=== PATIENT | male | born 1990 | race African-American/Black ===

== ENCOUNTER 2019-06-07 21:07 | Emergency (ER) | payer SELFPAY ==
[~2019-06-07] VITALS: Ht 180.3 cm; Wt 104.3 kg
[2019-06-07 21:55] LABS: BASO % 0 % (0-3); EOS % 0 % (0-3); HEMATOCRIT 48.6 % (39.0-53.0); HEMOGLOBIN 15.9 g/dL (13.0-17.5); LYMPH # 2.8 x10^3/uL (1.0-4.8); LYMPH % 20 % (24-48); MEAN CORPUSCULAR HEMOGLOBIN 28 pg (25-35); MEAN CORPUSCULAR HGB CONC 33 g/dL (31-37); MEAN CORPUSCULAR VOLUME 86 fL (79-100); MONO # 0.9 x10^3/uL (0.0-1.1); MONO % 6 % (0-9); NEUT # 10.3 x10^3/uL (1.8-7.7); NEUT % 73 % (31-73); PLATELET COUNT 284 x10^3/uL (140-400); RED BLOOD COUNT 5.67 x10^6/uL (4.30-5.70); RED CELL DISTRIBUTION WIDTH 12.7 % (11.5-14.5)
[2019-06-07 22:04] LABS: CALCIUM 9.9 mg/dL (8.5-10.1); GFR 109.3; POTASSIUM 4.2 mmol/L (3.5-5.1)
--- NOTE | 2019-06-07 22:04 | PHYS DOC ---
Past Medical History Past Medical History: No Pertinent History Past Surgical History: No Surgical History Alcohol Use: None Drug Use: None Adult General Chief Complaint Chief Complaint: ABDOMINAL PAIN [facility] HPI 28-year-old male presents to the emergency department with complaints of intermittent episodes of chest wall pain. Patient states is been ongoing 3 days worse with movements. He denies any nausea, vomiting, diarrhea, shortness breath, abdominal pain. States the pain is worse with movements of his arms. This is not reproducible on exam. Patient denies any injury. He has no past medical history nor that of allergies to medications. Patient denies any tobacco or alcohol or drug use. All other ROS negative unless documented in HPI Review of Systems Review of Systems See Above Current Medications Current Medications Current Medications Medications (Trade) Dose Ordered Sig/Danya Start Time Stop Time Status Last Admin Dose Admin Ketorolac Tromethamine (Toradol 30mg Vial) 30 mg 1X ONCE 06/07/19 22:15 06/07/19 22:16 DC 06/07/19 22:04 30 MG Allergies Allergies Allergies Coded Allergies Type Severity Reaction Last Updated Verified No Known Drug Allergies 06/07/19 No Physical Exam Physical Exam See Above Constitutional: Well developed, well nourished, no acute distress, non-toxic appearance. [] HENT: Normocephalic, atraumatic, bilateral external ears normal, oropharynx moist, no oral exudates, nose normal. [] Eyes: PERRLA, EOMI, conjunctiva normal, no discharge. [] Cardiovascular:Heart rate regular rhythm, no murmur [] Lungs & Thorax: Bilateral breath sounds clear to auscultation [] Abdomen: Bowel sounds normal, soft, no tenderness, no masses, no pulsatile masses. [] Skin: Warm, dry, no erythema, no rash. [] Back: No tenderness, no CVA tenderness. [] Extremities: No tenderness, no edema. [] Neurologic: Alert and oriented X 3, no focal deficits noted. [] Psychologic: Affect normal, judgement normal, mood normal. [] Current Patient Data Vital Signs Vital Signs Date Time Temp Pulse Resp B/P (MAP) Pulse Ox O2 Delivery O2 Flow Rate FiO2 06/07/19 21:15 98.3 89 19 161/76 (104) 96 Room Air 98.3 Lab Values Laboratory Tests Test 06/07/19 21:30 White Blood Count 14.0 x10^3/uL (4.0-11.0) H Red Blood Count 5.67 x10^6/uL (4.30-5.70) Hemoglobin 15.9 g/dL (13.0-17.5) Hematocrit 48.6 % (39.0-53.0) Mean Corpuscular Volume 86 fL (79-100) Mean Corpuscular Hemoglobin 28 pg (25-35) Mean Corpuscular Hemoglobin Concent 33 g/dL (31-37) Red Cell Distribution Width 12.7 % (11.5-14.5) Platelet Count 284 x10^3/uL (140-400) Neutrophils (%) (Auto) 73 % (31-73) Lymphocytes (%) (Auto) 20 % (24-48) L Monocytes (%) (Auto) 6 % (0-9) Eosinophils (%) (Auto) 0 % (0-3) Basophils (%) (Auto) 0 % (0-3) Neutrophils # (Auto) 10.3 x10^3/uL (1.8-7.7) H Lymphocytes # (Auto) 2.8 x10^3/uL (1.0-4.8) Monocytes # (Auto) 0.9 x10^3/uL (0.0-1.1) Eosinophils # (Auto) 0.0 x10^3/uL (0.0-0.7) Basophils # (Auto) 0.0 x10^3/uL (0.0-0.2) Sodium Level 133 mmol/L (136-145) L Potassium Level 4.2 mmol/L (3.5-5.1) Chloride Level 94 mmol/L (98-107) L Carbon Dioxide Level 25 mmol/L (21-32) Anion Gap 14 (6-14) Blood Urea Nitrogen 10 mg/dL (8-26) Creatinine 1.0 mg/dL (0.7-1.3) Estimated GFR (Cockcroft-Gault) 109.3 BUN/Creatinine Ratio 10 (6-20) Glucose Level 383 mg/dL (70-99) H Calcium Level 9.9 mg/dL (8.5-10.1) Magnesium Level 2.0 mg/dL (1.8-2.4) Total Bilirubin 0.9 mg/dL (0.2-1.0) Aspartate Amino Transferase (AST) 16 U/L (15-37) Alanine Aminotransferase (ALT) 31 U/L (16-63) Alkaline Phosphatase 84 U/L (46-116) Troponin I Quantitative < 0.017 ng/mL (0.000-0.055) Total Protein 8.5 g/dL (6.4-8.2) H Albumin 4.5 g/dL (3.4-5.0) Albumin/Globulin Ratio 1.1 (1.0-1.7) Laboratory Tests 06/07/19 21:30 Laboratory Tests 06/07/19 21:30 EKG EKG EKG reviewed, normal sinus rhythm, normal axis, heart rate 87, no evidence of ST elevation LA appreciated, interpretation time 2200[] Radiology/Procedures Radiology/Procedures [facility] [address] [place] [address] IMAGING REPORT Signed PATIENT: DEBORAH SOLOMON ACCOUNT: [id number] : 1990 LOCATION: ER AGE: 28 SEX: M EXAM STATUS: REG ER ORD. PHYSICIAN: JARRETT RAMÍREZ MD REASON: chest pain PROCEDURE: PORTABLE CHEST 1V EXAM: Chest, single view. HISTORY: Chest pain. COMPARISON: None. FINDINGS: A frontal view of the chest is obtained. There is no infiltrate, pleural effusion or pneumothorax. The heart is normal in size. IMPRESSION: No acute pulmonary finding. Electronically signed by: Radha Philip MD (06/07/2019 10:12 PM) [facility] DICTATED and SIGNED BY: RADHA PHILIP MD DATE: 06/07/192211 [] Course & Med Decision Making Course & Med Decision Making Pertinent Labs and Imaging studies reviewed. (See chart for details) []28-year-old male presents to the emergency department with complaints of intermittent episodes of chest wall pain. Patient states is been ongoing 3 days worse with movements. He denies any nausea, vomiting, diarrhea, shortness breath, abdominal pain. States the pain is worse with movements of his arms. This is not reproducible on exam. Patient denies any injury. He has no past medical history nor that of allergies to medications. Patient denies any tobacco or alcohol or drug use. Labs reviewed - WBC 14K CXR negative for acute process - no effusion/consolidation appreciated Toradol given with improvement of pain Noted evidence hyperglycemia - new diagnosis of diabetes, discussed medications vs dietary changes Chest wall pain Discussed return precautions Dragon Disclaimer Dragon Disclaimer This electronic medical record was generated, in whole or in part, using a voice recognition dictation system. Departure Departure Impression: Primary Impression: Chest wall pain Additional Impression: Hyperglycemia Disposition: HOME, SELF-CARE Condition: IMPROVED Referrals: NO PCP (PCP) Patient Instructions: 2400 Calorie Diet for Diabetes Meal Planning, Chest Wall Pain, [id number], Diabetes Meal Planning Guide, Hyperglycemia, [id number] Additional Instructions: Recommend follow up with PCP 3 - 5 days Return to the ER with worsening symptoms, intractable pain, fever, altered mental status Tylenol/Motrin as needed for pain - may use Motrin 800mg every 8 hours Problem Qualifiers JARRETT RAMÍREZ MD Jun 07, 2019 22:04
[2019-06-07 22:10] LABS: ALBUMIN 4.5 g/dL (3.4-5.0); ALBUMIN/GLOBULIN RATIO 1.1 (1.0-1.7); TOTAL BILIRUBIN 0.9 mg/dL (0.2-1.0); TOTAL PROTEIN 8.5 g/dL (6.4-8.2)
[2019-06-07] MEDS ORDERED: KETOROLAC 30 MG/ML VIAL. IVP ONE (22:15)
--- NOTE | 2019-06-07 22:15 | RAD ---
EXAM: Chest, single view. HISTORY: Chest pain. COMPARISON: None. FINDINGS: A frontal view of the chest is obtained. There is no infiltrate, pleural effusion or pneumothorax. The heart is normal in size. IMPRESSION: No acute pulmonary finding. Electronically signed by: Radha Philip MD (06/07/2019 10:12 PM) [facility]
[2019-06-07 23:27] VITALS: BP 113/56
--- NOTE | 2019-06-08 06:25 | EKG ---
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
== END 2019-06-07 23:55 | disposition home or self-care (01) ==
LOC: ER 21:07
DX: R07.89 Other chest pain (principal); E11.65 Type 2 diabetes mellitus with hyperglycemia
CPT/HCPCS: 36415; 71045; 80053; 83735; 84484; 85025; 93005; 96374; 99285; J1885

== ENCOUNTER 2020-01-01 19:05 | Emergency (ER) | payer SELFPAY ==
[~2020-01-01] VITALS: Ht 177.8 cm; Wt 119.1 kg
--- NOTE | 2020-01-01 19:24 | PHYS DOC ---
Past Medical History Past Medical History: No Pertinent History Past Surgical History: No Surgical History Smoking Status: Never Smoker Alcohol Use: None Drug Use: None General Adult EDM: Chief Complaint: HEADACHE HPI: HPI: Patient is a 29 year old male who presents for moderate diffuse headache. Patient states that he has been seeing spots on the right side for 2 weeks and on the left side for 24 hours. Presenting blood pressure was 184/106. Patient has not been diagnosed with hypertension in the past. Furthermore patient has been somewhat dizzy this morning. Patient has been taking ibuprofen for headache. Patient had pressure in his chest back in May. Another finding in triage was a blood sugar of 280. Patient has not been diagnosed nor treated for hypertension or diabetes in the past. Patient is in mild distress on arrival with no focal deficits or lateralizing signs Review of Systems: Review of Systems: Constitutional: Denies fever or chills. [] Eyes: has intermittent change in visual acuity. [] HENT: Denies nasal congestion or sore throat. [] Respiratory: Denies cough or shortness of breath. [] Cardiovascular: Denies recent chest pain or edema. [] GI: Denies abdominal pain, nausea, vomiting, bloody stools or diarrhea. [] : Denies dysuria. [] Musculoskeletal: Denies back pain or joint pain. [] Integument: Denies rash. [] Neurologic: has headache, no focal weakness or sensory changes. [] Endocrine: has polyuria or polydipsia. [] Lymphatic: Denies swollen glands. [] Psychiatric: Denies depression or anxiety. [] Heart Score: Risk Factors: Risk Factors: DM, Current or recent (<one month) smoker, HTN, HLP, family history of CAD, obesity. Risk Scores: Score 0 - 3: 2.5% MACE over next 6 weeks - Discharge Home Score 4 - 6: 20.3% MACE over next 6 weeks - Admit for Clinical Observation Score 7 - 10: 72.7% MACE over next 6 weeks - Early Invasive Strategies Allergies: Allergies: Allergies Coded Allergies Type Severity Reaction Last Updated Verified No Known Drug Allergies 06/07/19 No Physical Exam: PE: Constitutional: Well developed, well nourished, mild distress, non-toxic appearance. [] HENT: Normocephalic, atraumatic, bilateral external ears normal, oropharynx moist, no oral exudates, nose normal. [] Eyes: PERRL, EOMI, conjunctiva normal, no discharge. [] Neck: Normal range of motion, no tenderness, supple, no stridor. [] Cardiovascular:Heart rate regular rhythm, no murmur [] Lungs & Thorax: Bilateral breath sounds clear to auscultation [] Abdomen: Bowel sounds normal, soft, no tenderness, no masses, no pulsatile masses. [] Skin: Warm, dry, no erythema, no rash. [] Back: No tenderness. [] Extremities: No tenderness, no cyanosis, no clubbing, ROM intact, no edema. [] Neurologic: Alert and oriented X 3, normal motor function, normal sensory function, no focal deficits noted. [] Psychologic: Affect normal, judgement normal, mood normal. [] Current Patient Data: Labs: Laboratory Tests Test 01/01/20 19:21 Glucose (Fingerstick) 280 mg/dL (70-99) H Vital Signs: Laboratory Tests Test 01/01/20 19:21 01/01/20 19:32 Glucose (Fingerstick) 280 mg/dL White Blood Count 9.6 x10^3/uL Red Blood Count 5.19 x10^6/uL Hemoglobin 15.1 g/dL Hematocrit 44.5 % Mean Corpuscular Volume 86 fL Mean Corpuscular Hemoglobin 29 pg Mean Corpuscular Hemoglobin Concent 34 g/dL Red Cell Distribution Width 12.8 % Platelet Count 236 x10^3/uL Neutrophils (%) (Auto) 69 % Lymphocytes (%) (Auto) 19 % Monocytes (%) (Auto) 12 % Eosinophils (%) (Auto) 0 % Basophils (%) (Auto) 1 % Neutrophils # (Auto) 6.6 x10^3/uL Lymphocytes # (Auto) 1.8 x10^3/uL Monocytes # (Auto) 1.1 x10^3/uL Eosinophils # (Auto) 0.0 x10^3/uL Basophils # (Auto) 0.0 x10^3/uL Sodium Level 135 mmol/L Potassium Level 3.8 mmol/L Chloride Level 99 mmol/L Carbon Dioxide Level 29 mmol/L Anion Gap 7 Blood Urea Nitrogen 8 mg/dL Creatinine 1.2 mg/dL Estimated GFR (Cockcroft-Gault) 87.9 BUN/Creatinine Ratio 7 Glucose Level 305 mg/dL Calcium Level 8.8 mg/dL Total Bilirubin 0.7 mg/dL Aspartate Amino Transf (AST/SGOT) 22 U/L Alanine Aminotransferase (ALT/SGPT) 41 U/L Alkaline Phosphatase 69 U/L Troponin I Quantitative < 0.017 ng/mL Total Protein 7.9 g/dL Albumin 3.9 g/dL Albumin/Globulin Ratio 1.0 Current Medications Medications (Trade) Dose Ordered Sig/Danya Route PRN Reason Start Time Stop Time Status Last Admin Dose Admin Hydralazine HCl (Apresoline Inj) 10 mg 1X ONCE IVP 01/01/20 19:45 01/01/20 19:46 DC Sodium Chloride 1,000 ml @ 999 mls/hr 1X ONCE IV 01/01/20 19:45 01/01/20 20:45 01/01/20 19:55 EKG: EKG: EKG read at 1923: Normal sinus rhythm, rate 95, inverted T wave lead III but essentially unremarkable EKG, not STEMI [] Radiology/Procedures: Radiology/Procedures: [place] [phone] IMAGING REPORT Signed PATIENT: DEBORAH SOLOMON ACCOUNT: [id number] : 1990 LOCATION: ER AGE: 29 SEX: M EXAM STATUS: PRE ER ORD. PHYSICIAN: NANCY POOL DO REASON: short of air PROCEDURE: CHEST AP ONLY EXAM: Chest, single view. HISTORY: Shortness of air. COMPARISON: 06/07/2019 FINDINGS: A frontal view of the chest obtained. There is no infiltrate, pleural effusion or pneumothorax. The heart is normal in size. IMPRESSION: No acute pulmonary finding. Electronically signed by: Radha Bull MD (01/01/2020 7:48 PM) [facility] DICTATED and SIGNED BY: RADHA BULL MD DATE: 01/01/201947 [] Impression: [address] [address] IMAGING REPORT Signed PATIENT: DEBORAH SOLOMON ACCOUNT: [id number] : 1990 LOCATION: ER AGE: 29 SEX: M EXAM STATUS: REG ER ORD. PHYSICIAN: NANCY POOL DO REASON: headache PROCEDURE: CT HEAD WO CONTRAST CT HEAD WO CONTRAST History: Reason: headache / Spl. Instructions: / History: Comparison: None. Technique: Noncontrast CT imaging was performed of the head. Exposure: One or more of the following individualized dose reduction techniques were utilized for this examination: 1. Automated exposure control 2. Adjustment of the mA and/or kV according to patient size 3. Use of iterative reconstruction technique. Findings: No intracranial hemorrhage. No mass effect. No hydrocephalus. Extra-axial spaces are unremarkable. Imaged orbits are unremarkable. Imaged paranasal sinuses and mastoid air cells are clear. No acute calvarial fracture. Impression: 1. No acute intracranial abnormality. Electronically signed by: Lion Rivera DO (01/01/2020 8:02 PM) [facility] DICTATED and SIGNED BY: LION RIVERA DO DATE: 01/01/202001 Course & Med Decision Making: Course & Med Decision Making Pertinent Labs and Imaging studies reviewed. (See chart for details) [] Dragon Disclaimer: Dragon Disclaimer: This electronic medical record was generated, in whole or in part, using a voice recognition dictation system. 2019 stable, feeling moderately improved at this time. Systolic blood pressure improved to 165 systolic so hydralazine was not ultimately given. 2239 stable, patient reassessed at this time. He no longer has a headache or vision changes. Blood sugar was elevated but stable at 280. We had a lengthy discussion about controlling blood pressure and getting his diabetes under control as well. We stressed the need for him to see a family doctor he may need to be on diabetic oral medication. I will start patient on hydrochlorothiazide. His blood pressure improved to 136/82 at this time. Furthermore it was stressed that he needs to see an eye doctor to have his retinas checked. There could be damage from his blood pressure or diabetes. Departure Departure Impression: Primary Impression: Acute headache Qualified Codes: R51 - Headache Additional Impressions: Elevated blood pressure reading Hyperglycemia Blurred vision, bilateral Disposition: HOME, SELF-CARE Condition: STABLE Referrals: NO PCP (PCP) ELMER LYLES MD Patient Instructions: Diabetes, FAQs, Hyperglycemia, Hypertension Additional Instructions: You have two previously unknown health conditions diagnosed this evening. You have elevated blood pressure and elevated blood sugar consistent with diabetes. You need to eat a low sugar low-salt diet. It is very important that you follow-up with a family physician right away as you will likely need to be on oral diabetic medication. Furthermore because she is had some recent vision changes you need to see an eye doctor as soon as possible to have a dilated eye exam. Your eyes could beg getting damaged from either the diabetes or hypertension. Scripts Hydrochlorothiazide (HYDROCHLOROTHIAZIDE TABLET ) 25 Mg Tablet 25 MG PO DAILY for high blood pressure for 30 Days, #30 TAB 0 Refills Prov: NANCY POOL DO 01/01/20 Justicifation of Admission Dx: Justifications for Admission: Justification of Admission Dx: N/A NANCY POOL DO Jan 01, 2020 19:24
[2020-01-01 19:45] LABS: BASO % 1 % (0-3); EOS % 0 % (0-3); HEMATOCRIT 44.5 % (39.0-53.0); HEMOGLOBIN 15.1 g/dL (13.0-17.5); LYMPH # 1.8 x10^3/uL (1.0-4.8); LYMPH % 19 % (24-48); MEAN CORPUSCULAR HEMOGLOBIN 29 pg (25-35); MEAN CORPUSCULAR HGB CONC 34 g/dL (31-37); MEAN CORPUSCULAR VOLUME 86 fL (79-100); MONO # 1.1 x10^3/uL (0.0-1.1); MONO % 12 % (0-9); NEUT # 6.6 x10^3/uL (1.8-7.7); NEUT % 69 % (31-73); PLATELET COUNT 236 x10^3/uL (140-400); RED BLOOD COUNT 5.19 x10^6/uL (4.30-5.70); RED CELL DISTRIBUTION WIDTH 12.8 % (11.5-14.5); WHITE BLOOD COUNT 9.6 x10^3/uL (4.0-11.0)
[2020-01-01] MEDS ORDERED: IV NORMAL SALINE 1000ML BAG 1,000 ML IV ONE (19:45)
[2020-01-01] MEDS ORDERED: hydrALAZINE 20 MG/ML VIAL. IVP ONE (19:45)
--- NOTE | 2020-01-01 19:51 | RAD ---
EXAM: Chest, single view. HISTORY: Shortness of air. COMPARISON: 06/07/2019 FINDINGS: A frontal view of the chest obtained. There is no infiltrate, pleural effusion or pneumothorax. The heart is normal in size. IMPRESSION: No acute pulmonary finding. Electronically signed by: Radha Philip MD (01/01/2020 7:48 PM) [facility]
[2020-01-01 19:55] LABS: CALCIUM 8.8 mg/dL (8.5-10.1); CREATININE 1.2 mg/dL (0.7-1.3); GFR 87.9; POTASSIUM 3.8 mmol/L (3.5-5.1)
[2020-01-01 20:00] LABS: ALBUMIN 3.9 g/dL (3.4-5.0); TOTAL BILIRUBIN 0.7 mg/dL (0.2-1.0); TOTAL PROTEIN 7.9 g/dL (6.4-8.2)
--- NOTE | 2020-01-01 20:05 | RAD ---
CT HEAD WO CONTRAST History: Reason: headache / Spl. Instructions: / History: Comparison: None. Technique: Noncontrast CT imaging was performed of the head. Exposure: One or more of the following individualized dose reduction techniques were utilized for this examination: 1. Automated exposure control 2. Adjustment of the mA and/or kV according to patient size 3. Use of iterative reconstruction technique. Findings: No intracranial hemorrhage. No mass effect. No hydrocephalus. Extra-axial spaces are unremarkable. Imaged orbits are unremarkable. Imaged paranasal sinuses and mastoid air cells are clear. No acute calvarial fracture. Impression: 1. No acute intracranial abnormality. Electronically signed by: Lion Rivera DO (01/01/2020 8:02 PM) [facility]
[2020-01-01 21:35] LABS: BILIRUBIN,URINE NEGATIVE (NEG); CLARITY,URINE CLEAR; COLOR,URINE YELLOW; NITRITE,URINE NEGATIVE (NEG); PH,URINE 5.5 (<5.0-8.0); PROTEIN,URINE NEGATIVE (NEG-TRACE)
[2020-01-01 21:46] LABS: BACTERIA,URINE 0 /HPF (0-FEW); RBC,URINE 0 /HPF (0-2); SQUAMOUS EPITHELIAL CELL,UR OCC /LPF; WBC,URINE 0 /HPF (0-4)
[2020-01-01] MEDS ORDERED: HYDR-2145 PO (22:47)
[2020-01-01 22:53] VITALS: BP 149/90
--- NOTE | 2020-01-02 07:53 | EKG ---
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
== END 2020-01-01 23:00 | disposition home or self-care (01) ==
LOC: ER 19:05
DX: R51 Headache (principal); R42 Dizziness and giddiness; R03.0 Elevated blood-pressure reading, without diagnosis of hypertension; R73.9 Hyperglycemia, unspecified; H53.8 Other visual disturbances
CPT/HCPCS: 36415; 70450; 71045; 80053; 81001; 82962; 84484; 85025; 93005; 96360; 99285; J7030

== ENCOUNTER 2020-01-08 10:47 | Emergency (ER) | payer SELFPAY ==
[~2020-01-08] VITALS: Ht 177.8 cm; Wt 119.0 kg
[~2020-01-08 10:47] MED LIST: HYDR-2145 PO
--- NOTE | 2020-01-08 11:04 | PHYS DOC ---
Past Medical History Past Medical History: No Pertinent History Past Surgical History: No Surgical History Smoking Status: Never Smoker Alcohol Use: None Drug Use: None General Adult EDM: Chief Complaint: Palpitations HPI: HPI: 29-year-old male presents emergency department today with palpitations. He started taking hydrochlorothiazide that was prescribed for him for high blood pressure and since taking it he has had palpitations.. His palpitations come and go. He has associated low back pain that comes and goes but currently does not have any low back pain. He describes it as a throbbing aching pain ever since he started taking the medication. The pain is nonradiating. Review of systems negative for chest pain shortness of breath vomiting fevers chills. All other review of systems negative. ED course: 29-year-old male presenting with palpitations after starting on hydrochlorothiazide. On arrival EKG performed and reviewed by myself in real- time shows normal sinus rhythm with a tachycardic rate. ST segments congruent. Not suggestive of ACS. Intervals are within normal limits. Blood work ordered. CBC unremarkable. Chemistry panel shows mildly low sodium. Otherwise magnesium is mildly low. Troponin within normal limits. Chest x-ray is unremarkable. Patient felt much better after receiving IV fluids. We will give him IV magnesium. Patient will be discharged to follow-up with PCP for chronic hypertension management. In the interim he is not to take his hydrochlorothiazide. Follow-up with PCP in 1 to 2 days. The patient has been examined and was not found to have an emergency medical condition. The patient was then discharged home in stable condition to follow up with their primary care physician over the next 1-2 days. They were to return if their symptoms worsened or if they were concerned for any reason. They were also instructed to return to the emergency department if they were unable to get the recommended and appropriate follow-up. [id number] discharge instructions and return precautions were given. Patient's questions were answered to their satisfaction. Patient is comfortable with plan. Heart Score: Risk Factors: Risk Factors: DM, Current or recent (<one month) smoker, HTN, HLP, family history of CAD, obesity. Risk Scores: Score 0 - 3: 2.5% MACE over next 6 weeks - Discharge Home Score 4 - 6: 20.3% MACE over next 6 weeks - Admit for Clinical Observation Score 7 - 10: 72.7% MACE over next 6 weeks - Early Invasive Strategies Allergies: Allergies: Allergies Coded Allergies Type Severity Reaction Last Updated Verified No Known Drug Allergies 06/07/19 No Physical Exam: PE: Constitutional: Well developed, well nourished, no acute distress, non-toxic appearance. [] HENT: Normocephalic, atraumatic, bilateral external ears normal, oropharynx moist, no oral exudates, nose normal. [] Eyes: PERRLA, EOMI, conjunctiva normal, no discharge. [] Neck: Normal range of motion, no tenderness, supple, no stridor. [] Cardiovascular: Mildly tachycardic rate with a regular rhythm. No murmur. Lungs & Thorax: Bilateral breath sounds clear to auscultation [] Abdomen: Bowel sounds normal, soft, no tenderness, no masses, no pulsatile m asses. No rebound tenderness or guarding. Skin: Warm, dry, no erythema, no rash. [] Back: No tenderness, no CVA tenderness. [] Extremities: No tenderness, no cyanosis, no clubbing, ROM intact, no edema. [] Neurologic: Alert and oriented X 3, normal motor function, normal sensory function, no focal deficits noted. [] Psychologic: Affect normal, judgement normal, mood normal. [] EKG: EKG: [] Radiology/Procedures: Radiology/Procedures: [] Course & Med Decision Making: Course & Med Decision Making Pertinent Labs and Imaging studies reviewed. (See chart for details) [] Dragon Disclaimer: Dragon Disclaimer: This electronic medical record was generated, in whole or in part, using a voice recognition dictation system. Departure Departure Impression: Primary Impression: Palpitations Disposition: 01 HOME, SELF-CARE Condition: STABLE Referrals: NO PCP (PCP) Patient Instructions: Palpitations Additional Instructions: Follow-up with your primary physician in 1 to 2 days. Return for any worsening symptoms or any concerns. Justicifation of Admission Dx: Justifications for Admission: Justification of Admission Dx: No CARMINE SCHWARTZ MD Jan 08, 2020 11:04
[2020-01-08] MEDS ORDERED: IV NORMAL SALINE 1000ML BAG 1,000 ML IV ONE ×2 (11:15→12:00)
--- NOTE | 2020-01-08 11:28 | RAD ---
EXAM: Chest, single view. HISTORY: Palpitations. COMPARISON: None. FINDINGS: A frontal view of the chest is obtained. There is no infiltrate, pleural effusion or pneumothorax. The heart is normal in size. IMPRESSION: No acute pulmonary finding. Electronically signed by: Radha Philip MD (01/08/2020 11:25 AM) [id number]
[2020-01-08 11:34] LABS: BASO % 1 % (0-3); EOS % 0 % (0-3); HEMATOCRIT 47.7 % (39.0-53.0); HEMOGLOBIN 16.6 g/dL (13.0-17.5); LYMPH # 2.1 x10^3/uL (1.0-4.8); LYMPH % 25 % (24-48); MEAN CORPUSCULAR HEMOGLOBIN 29 pg (25-35); MEAN CORPUSCULAR HGB CONC 35 g/dL (31-37); MEAN CORPUSCULAR VOLUME 84 fL (79-100); MONO # 0.8 x10^3/uL (0.0-1.1); MONO % 9 % (0-9); NEUT # 5.7 x10^3/uL (1.8-7.7); NEUT % 66 % (31-73); PLATELET COUNT 250 x10^3/uL (140-400); RED CELL DISTRIBUTION WIDTH 12.6 % (11.5-14.5); WHITE BLOOD COUNT 8.6 x10^3/uL (4.0-11.0)
[2020-01-08 11:43] LABS: CALCIUM 9.6 mg/dL (8.5-10.1); GFR 108.5; MAGNESIUM 1.7 mg/dL (1.8-2.4); POTASSIUM 3.8 mmol/L (3.5-5.1)
[2020-01-08] MEDS ORDERED: MAGNESIUM SULFATE 2GM 50 ML IV ONE (12:00)
[2020-01-08 14:00] VITALS: BP 126/76
--- NOTE | 2020-01-08 15:09 | EKG ---
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
== END 2020-01-08 14:09 | disposition home or self-care (01) ==
LOC: ER 10:47
DX: R00.2 Palpitations (principal); M54.5 Low back pain
CPT/HCPCS: 36415; 71045; 80048; 83735; 84484; 85025; 93005; 96365; 99285; J3475; J7030